=== PATIENT | female | born 1985 | race African-American/Black ===

== ENCOUNTER 2016-03-14 16:54 | Inpatient (IN) | payer OTHER ==
[2016-03-14 17:15] VITALS: BMI 30.7
--- NOTE | 2016-03-14 19:04 | PDOC ---
History of Present Illness - General Chief Complaint: Pain, Acute Stated Complaint: LOWER ABD PAIN Time Seen by Provider: 03/14/16 18:45 History Source: Patient Exam Limitations: No Limitations - History of Present Illness Travel History: No Timing/Duration: reports: intermittent Quality: reports: moderate Abdominal Pain Onset Location: reports: RLQ Pain Radiation: reports: no radiation Past History - Travel Traveled outside of the country in the last 30 days: No Close contact w/someone who was outside of country & ill: No - Past Medical History Allergies/Adverse Reactions: Allergies Allergy/AdvReac Type Severity Reaction Status Date / Time No Known Allergies Allergy Verified 10/15/13 20:23 Home Medications: Ambulatory Orders NK [No Known Home Medication] 03/14/16 Anemia: Yes Other medical history: ovarian cyst, enlarged left ovary, endometriosis - Surgical History Comments:: 03/14/16 20:51 Patient has 1 kidney:Right Patient donator her left kidney to her father 5 years ago. - Reproductive History Is Patient Now?: No - Immunization History Immunization Up to Date: Yes - Psycho/Social/Smoking Cessation Hx Anxiety: No Suicidal Ideation: No Smoking History: Never smoked Have you smoked in the past 12 months: No Information on smoking cessation initiated: No Hx Alcohol Use: No Drug/Substance Use Hx: No Substance Use Type: None Review of Systems - Review of Systems Able to Perform ROS?: Yes Comments:: 03/14/16 20:51 CONSTITUTIONAL: Absent: fever, chills, diaphoresis, generalized weakness, malaise, loss of appetite HEENT: Absent: rhinorrhea, nasal congestion, throat pain, throat swelling, difficulty swallowing, mouth swelling, ear pain, eye pain, visual Changes CARDIOVASCULAR: Absent: chest pain, loss of consciousness, palpitations, irregular heart rate, peripheral edema RESPIRATORY: Absent: cough, shortness of breath, dyspnea with exertion, orthopnea, wheezing, stridor, hemoptysis GASTROINTESTINAL: +RLQ pain Absent: abdominal distension, nausea, vomiting, diarrhea, constipation, melena , hematochezia GENITOURINARY: Absent: dysuria, frequency, urgency, hesitancy, hematuria, flank pain, genital pain MUSCULOSKELETAL: Absent: myalgia, arthralgia, joint swelling SKIN: Absent: rash, itching, pallor HEMATOLOGIC/IMMUNOLOGIC: Absent: easy bleeding, easy bruising, lymphadenopathy, frequent infections ENDOCRINE: Absent: unexplained weight gain, unexplained weight loss, heat intolerance, cold intolerance NEUROLOGIC: Absent: headache, focal weakness or paresthesias, dizziness, unsteady gait, seizure, mental status changes, bladder or bowel incontinence PSYCHIATRIC: Absent: anxiety, depression, suicidal or homicidal ideation, hallucinations. Is the patient limited Portuguese proficient: No *Physical Exam - Vital Signs Last Vital Signs Temp Pulse Resp BP Pulse Ox 98.3 F 60 18 131/75 100 03/14/16 17:11 03/14/16 17:11 03/14/16 17:11 03/14/16 17:11 03/14/16 17:11 - Physical Exam Comments: 03/14/16 20:52 31-year-old female presents to the emergency department complaining of right lower quadrant abdominal pain 2 days. Pain is described as 5/10 dull nonradiating intermittent discomfort. There are no alleviating or exacerbating factors. Patient denies any nausea/vomiting, fever/chills, chest pain, shortness of breath, flank pains, urinary symptoms: Frequency/urgency/hesitancy , hematuria. LMP: Approximately 2 weeks ago. Patient only has one kidney/right Patient donator her left kidney to her father 5 years ago. GENERAL: Well developed, well nourished. Awake and alert. No acute distress. HEENT: Normocephalic, atraumatic. PERRLA, EOMI. No conjunctival pallor. Sclera are non- icteric. Moist mucous membranes. Oropharynx is clear. NECK: Supple. Full ROM. No JVD. Carotid pulses 2+ and symmetric, without bruits. No thyromegaly. No lymphadenopathy. CARDIOVASCULAR: Regular rate and rhythm. No murmurs, rubs, or gallops. Distal pulses are 2+ and symmetric. PULMONARY: No evidence of respiratory distress. Lungs clear to auscultation bilaterally. No wheezing, rales or rhonchi. ABDOMINAL: RLQ pain on palp; +Rovsings +mcBurney's Soft. Non-distended. No rebound or guarding. No organomegaly. Normoactive bowel sounds. MUSCULOSKELETAL Normal range of motion at all joints. No bony deformities or tenderness. No CVA tenderness. EXTREMITIES: No cyanosis. No clubbing. No edema. No calf tenderness. SKIN: Warm and dry. Normal capillary refill. No rashes. No jaundice. NEUROLOGICAL: Alert, awake, appropriate. Cranial nerves 2-12 intact. No deficits to light touch and temperature in face, upper extremities and lower extremities. No motor deficits in the in face, upper extremities and lower extremities. Normoreflexic in the upper and lower extremities. Normal speech. Toes are down- going bilaterally. Gait is normal without ataxia. PSYCHIATRIC: Cooperative. Good eye contact. Appropriate mood and affect. ED Treatment Course - LABORATORY CBC & Chemistry Diagram: 03/14/16 18:50 03/14/16 18:50 - RADIOLOGY Radiograph Interpretation: 03/15/16 02:38 Web Services Developer: ([email or web address]) Begin of Report Content Referring Physician: Isaura Minor Patient Name: Zamzam Araujo This is a preliminary report by imaging production zone leader Exam: Noncontrast CT pelvis Images: [id number] Clinical indication: Right lower quadrant pain. A prior examination performed earlier on the same evening was reviewed. Findings: The appendix was seen to better advantage on the initial examination and is now obscured by inseparable isoattenuating small bowel loops. A fecalith is noted in the distal tip of the appendix. No periappendiceal inflammatory changes are identified on either examination. No cecal thickening or pericecal inflammatory changes are seen. The uterus is anteverted. Uterine fibroids are noted. No adnexal masses are seen. The urinary bladder is unremarkable. No pelvic adenopathy is seen. Impression: The appendix is poorly visualized due to the presence of inseparable isoattenuating unopacified small bowel loops. An appendicolith is noted in the distal appendix. No surrounding inflammatory changes are seen. On the initial examination a short segment of the appendix is noted to abut the right psoas muscle. Correlate for psoas sign. THIS DOCUMENT HAS BEEN ELECTRONICALLY SIGNED Kapil Hammer M.D. 03/15/16 03:38 Progress Note - Progress Note Progress Note: 0235hrs: Called Dr. Braxton/surgery production zone leader 0305hrs: Called Dr. Braxton/surgery production zone leader 0328hrs: Microblogged hospitalist 0612hrs: Numerous calls were made to Dr. Braxton/ no response 0727hrs: Spoke to Dr. Braxton/ will take pt for lap appy today *DC/Admit/Observation/Transfer Diagnosis at time of Disposition: Acute appendicitis Qualifiers: Acute appendicitis type: unspecified acute appendicitis type Qualified Code(s) : K35.80 - Unspecified acute appendicitis - Discharge Dispostion Condition at time of disposition: Guarded Admit: Yes - Referrals
[2016-03-14 19:13] LABS: BASOPHIL 2.3 % (0-2.0); EOSINOPHIL 2.6 % (0-4.5); MCH 22.2 pg (25.7-33.7); MCHC 31.3 g/dl (32.0-36.0); MEAN CELL VOLUME 70.8 fl (80-96); MEAN PLT VOLUME 8.9 fl (7.5-11.1); NEUTROPHILS 70.6 % (42.8-82.8); PLATELET COUNT 247 K/MM3 (134-434); RDW 16.7 % (11.6-15.6)
[2016-03-14 19:15] LABS: URINE APPEARANCE CLEAR; URINE BILIRUBIN NEGATIVE (NEGATIVE); URINE BLOOD NEGATIVE (NEGATIVE); URINE COLOR COLORLESS; URINE GLUCOSE (UA) NEGATIVE (NEGATIVE); URINE KETONE NEGATIVE (NEGATIVE); URINE LEUK ESTERASE NEGATIVE (NEGATIVE); URINE NITRITE NEGATIVE (NEGATIVE); URINE PROTEIN NEGATIVE (NEGATIVE); URINE UROBILINOGEN NEGATIVE E.U./dl (0.2-1.0)
[2016-03-14 19:54] LABS: BILIRUBIN,TOTAL 0.3 mg/dL (0.2-1.0); CALCIUM 8.9 mg/dL (8.5-10.1); CREATININE 1.2 mg/dL (0.55-1.02); TOT PROT 7.7 g/dl (6.4-8.2)
--- NOTE | 2016-03-14 19:57 | PDOC ---
*Physical Exam - Vital Signs Last Vital Signs Temp Pulse Resp BP Pulse Ox 98.3 F 60 18 131/75 100 03/14/16 17:11 03/14/16 17:11 03/14/16 17:11 03/14/16 17:11 03/14/16 17:11 ED Treatment Course - LABORATORY CBC & Chemistry Diagram: 03/16/16 06:45 03/16/16 06:45 - ADDITIONAL ORDERS Additional order review: Laboratory Results 03/14/16 18:50 Urine Color Colorless Urine Appearance Clear Urine pH 6.0 Ur Specific [place] 1.002 Urine Protein Negative Urine Glucose (UA) Negative Urine Ketones Negative Urine Blood Negative Urine Nitrite Negative Urine Bilirubin Negative Urine Urobilinogen Negative Ur Leukocyte Esterase Negative Urine HCG, Qual Negative 03/14/16 18:50 RBC 5.18 MCV 70.8 L MCHC 31.3 L RDW 16.7 H D MPV 8.9 Neutrophils % 70.6 Lymphocytes % 18.3 Monocytes % 6.2 Eosinophils % 2.6 Basophils % 2.3 H Medical Decision Making - Medical Decision Making 03/14/16 19:57 Pt seen by the Advanced Practice Provider under my direct supervision Ancillary studies reviewed I agree with plan as outlined by the Advanced Practice Provider LELO Minor *DC/Admit/Observation/Transfer Diagnosis at time of Disposition: Acute appendicitis - Discharge Dispostion Disposition: HOME Condition at time of disposition: Guarded - Prescriptions
[2016-03-15] MEDS ORDERED: CEFTRIAXONE 1 GM in DEXTROSE 5%-WATER - 100 ML IVPB ONE (02:25)
[2016-03-15] MEDS ORDERED: CEFTRIAXONE 50 ML ONE (02:38)
[2016-03-15] MEDS ORDERED: ONDANSETRON 4 MG/2 ML VIAL IVPB PRN (06:10)
[2016-03-15] MEDS ORDERED: DOCUSATE SODIUM 100 MG CAPSULE (FP) PO PRN (06:10)
[2016-03-15] MEDS ORDERED: morphine CARPU-JECT 2 MG/1 ML DISP.SYRIN IVPUSH PRN (06:10)
[2016-03-15] MEDS ORDERED: DEXTROSE 5%-NORMAL SALINE 1,000 ML IV SCH (06:15)
--- NOTE | 2016-03-15 09:07 | CONSULT ---
Consult Consult Specialty:: Surgery Reason for Consultation:: Acute appendicitis - History of Present Illness History of Present Illness: 31 female presents to ER for RLQ pain x 2 days No prior episodes No fevers/chills No nausea/vomiting No diarrhea - History Source History Provided By: Patient, Medical Record Limitations to Obtaining History: No Limitations - Past Medical History ...: No - Past Surgical History Additional Surgical History: Left kidney donor transplant - Alcohol/Substance Use Hx Alcohol Use: No - Smoking History Smoking history: Never smoked Have you smoked in the past 12 months: No Home Medications - Allergies Allergies/Adverse Reactions: Allergies Allergy/AdvReac Type Severity Reaction Status Date / Time No Known Allergies Allergy Verified 10/15/13 20:23 - Home Medications Home Medications: Ambulatory Orders Oxycodone HCl/Acetaminophen [Percocet 5-325 mg Tablet] 1 - 2 tab PO Q6H #28 tab MDD 4 03/15/16 Family Disease History - Family Disease History Family History: Unremarkable Review of Systems - Review of Systems Constitutional: denies: Chills, Fever HENT: reports: No Symptoms Cardiovascular: denies: Chest Pain Respiratory: denies: Cough Gastrointestinal: reports: Abdominal Pain. denies: Diarrhea, Vomiting Neurological: denies: Change in LOC Pain Intensity: 4 Physical Exam Vital Signs: Vital Signs Temperature 98.5 F 03/15/16 06:30 Pulse Rate 64 03/15/16 06:30 Respiratory Rate 19 03/15/16 06:30 Blood Pressure 115/75 03/15/16 06:30 O2 Sat by Pulse Oximetry (%) 100 03/15/16 06:30 Constitutional: Yes: Calm Neck: Yes: Supple Cardiovascular: Yes: Regular Rate and Rhythm Respiratory: Yes: CTA Bilaterally Gastrointestinal: Yes: Soft, Tenderness (RLQ). No: Distention, Tenderness, Rebound Neurological: Yes: Alert, Oriented Labs: CBC,CMP WBC 10.0 K/mm3 (4.0-10.0) 03/14/16 18:50 RBC 5.18 M/mm3 (3.60-5.2) 03/14/16 18:50 Hgb 11.5 GM/dL (10.7-15.3) 03/14/16 18:50 Hct 36.7 % (32.4-45.2) 03/14/16 18:50 MCV 70.8 fl (80-96) L 03/14/16 18:50 MCHC 31.3 g/dl (32.0-36.0) L 03/14/16 18:50 RDW 16.7 % (11.6-15.6) H D 03/14/16 18:50 Plt Count 247 K/MM3 (134-434) D 03/14/16 18:50 MPV 8.9 fl (7.5-11.1) 03/14/16 18:50 Neutrophils % 70.6 % (42.8-82.8) 03/14/16 18:50 Lymphocytes % 18.3 % (8-40) 03/14/16 18:50 Monocytes % 6.2 % (3.8-10.2) 03/14/16 18:50 Eosinophils % 2.6 % (0-4.5) 03/14/16 18:50 Basophils % 2.3 % (0-2.0) H 03/14/16 18:50 Sodium 140 mmol/L (136-145) 03/14/16 18:50 Potassium 4.1 mmol/L (3.5-5.1) 03/14/16 18:50 Chloride 104 mmol/L (98-107) 03/14/16 18:50 Carbon Dioxide 28 mmol/L (21-32) 03/14/16 18:50 Anion Gap 8 (8-16) 03/14/16 18:50 BUN 12 mg/dL (7-18) D 03/14/16 18:50 Creatinine 1.2 mg/dL (0.55-1.02) H 03/14/16 18:50 Creat Clearance w eGFR 52.75 (>60) 03/14/16 18:50 Random Glucose 79 mg/dL (74-106) 03/14/16 18:50 Calcium 8.9 mg/dL (8.5-10.1) 03/14/16 18:50 Total Bilirubin 0.3 mg/dL (0.2-1.0) 03/14/16 18:50 AST 17 U/L (15-37) 03/14/16 18:50 ALT 29 U/L (12-78) 03/14/16 18:50 Alkaline Phosphatase 69 U/L (45-117) 03/14/16 18:50 Total Protein 7.7 g/dl (6.4-8.2) 03/14/16 18:50 Albumin 4.0 g/dl (3.4-5.0) D 03/14/16 18:50 Imaging - Results Cat Scan: Report Reviewed, Image Reviewed Problem List - Problems (1) Acute appendicitis Code(s): K35.80 - UNSPECIFIED ACUTE APPENDICITIS Qualifiers: Acute appendicitis type: unspecified acute appendicitis type Qualified Code(s): K35.80 - Unspecified acute appendicitis Assessment/Plan 31 female with acute appendicitis and appendicolith NPO For laparoscopic possible open appendectomy Risks and benefits explained Understands and agrees
--- NOTE | 2016-03-15 10:06 | HP ---
CHIEF COMPLAINT: "my stomach hurts" PCP: Dr Keron Coppola HISTORY OF PRESENT ILLNESS: This is a 31 yo F with no PMH, who presents due to right lower quadrant abdominal pain 2 days. It started out as diffuse pelvic pain and eventually localized to RLQ. she shates it has been cramping/dull, intermittant, nonradiating and 8/10 at its worst. It was not alleviated by Tylenol. There are no alleviating or exacerbating factors. She denies ever having similar pain before. She denies eating new foods or sick contacts. She denies nausea/vomiting , diarrhea/melena/hematochezia, fever/chills, chest pain, shortness of breath, flank pain or dysuria. 5 years ago she donated her L kidney to her father who was in hypertensive renal failure. she is currently asymptomatic unless her abdomen is pressed on. ER course was notable for: (1)labs (2)abdominal/pelvic CT (3)rocephin, IVF, zofran, colace. Recent Travel: denies PAST MEDICAL HISTORY: as above PAST SURGICAL HISTORY: as above and 3 c sections Social History: lives at home with , student Smoking: denies Alcohol: denies Drugs: denies Family History: HTN, DM Allergies No Known Allergies Allergy (Verified 10/15/13 20:23) HOME MEDICATIONS: Medication Instructions Recorded Oxycodone HCl/Acetaminophen 1 - 2 tab PO Q6H #28 tab MDD 4 03/15/16 [Percocet 5-325 mg Tablet] REVIEW OF SYSTEMS CONSTITUTIONAL: Absent: fever, chills, diaphoresis, generalized weakness, loss of appetite HEENT: Absent: rhinorrhea, nasal congestion, throat pain CARDIOVASCULAR: Absent: chest pain, syncope, palpitations RESPIRATORY: Absent: cough, shortness of breath, dyspnea with exertion GASTROINTESTINAL: Absent: nausea, vomiting, diarrhea, constipation, melena, hematochezia GENITOURINARY: Absent: dysuria, frequency, urgency MUSCULOSKELETAL: Absent: myalgia, arthralgia SKIN: Absent: rash, itching, pallor HEMATOLOGIC/IMMUNOLOGIC: Absent: easy bleeding, easy bruising ENDOCRINE: Absent: unexplained weight gain, unexplained weight loss NEUROLOGIC: Absent: headache, focal weakness or paresthesias, dizziness PSYCHIATRIC: Absent: anxiety, depression Laboratory Tests 03/14/16 03/14/16 03/14/16 18:50 18:50 18:50 WBC 10.0 Hgb 11.5 Hct 36.7 Plt Count 247 D Neutrophils % 70.6 Lymphocytes % 18.3 Sodium 140 Potassium 4.1 Chloride 104 Carbon Dioxide 28 Anion Gap 8 BUN 12 D Creatinine 1.2 H Creat Clearance w eGFR 52.75 Random Glucose 79 Calcium 8.9 Total Bilirubin 0.3 AST 17 ALT 29 Alkaline Phosphatase 69 Total Protein 7.7 Albumin 4.0 D Urine Color Colorless Urine Appearance Clear Urine pH 6.0 Ur Specific [place] 1.002 Urine Protein Negative Urine Glucose (UA) Negative Urine Ketones Negative Urine Blood Negative Urine Nitrite Negative Urine Bilirubin Negative Urine Urobilinogen Negative Ur Leukocyte Esterase Negative Urine HCG, Qual Negative PHYSICAL EXAMINATION GENERAL: Awake, alert, and fully oriented, in no acute distress. HEAD: Normal with no signs of trauma. EYES: Pupils equal, round and reactive to light, extraocular movements intact, sclera anicteric, conjunctiva clear. EARS, NOSE, THROAT: Moist mucous membranes. NECK: supple without lymphadenopathy, JVD, or masses. LUNGS: Breath sounds equal, clear to auscultation bilaterally. HEART: Regular rate and rhythm, normal S1 and S2 ABDOMEN: Soft, not distended, globally reduced bowel sounds +rovsing +mcburney MUSCULOSKELETAL: No CVA tenderness. UPPER EXTREMITIES: 2+ pulses, warm, well-perfused. No cyanosis. No peripheral edema. LOWER EXTREMITIES: 2+ pulses, warm, well-perfused. No calf tenderness. No peripheral edema. NEUROLOGICAL: Cranial nerves II-XII grossly intact. Normal speech. PSYCHIATRIC: Cooperative. Good eye contact. Appropriate mood and affect. SKIN: Warm, dry ASSESSMENT/PLAN: This is a 31 yo F with no PMH, who presents due to right lower quadrant abdominal pain 2 days. Acute appendecitis -CT abdomen/pelvis: consistent with possible acute appendicitis, no abscess or rupture -afebrile, hemodynamically stable, no leukocytosis -s/p rocephin in ED -IVF D5W -zofran PRN -Reviewed by Surgery-OR recommended -Lap appe this morning -post op recommendatins per surgery -NPO; regular diet post op -dilaudid 1 mg q4h prn -oxycodone 10 mg q4h -NS@75 -tylenon prn S/p nephrectomy -donor -mildly elevated creat 1.2 wnl in setting of one kidney FEN NS@75 lytes stable DVt GI PPX: early ambulation, SCD, diet NPO; then regular diet post op Dispo: admit to med surge, possible d/c tomorrow AM. Problem List - Problem (1) Acute appendicitis Code(s): K35.80 - UNSPECIFIED ACUTE APPENDICITIS Qualifiers: Acute appendicitis type: unspecified acute appendicitis type Qualified Code(s): K35.80 - Unspecified acute appendicitis (2) Abdominal pain Code(s): R10.9 - UNSPECIFIED ABDOMINAL PAIN (3) History of nephrectomy, unilateral Code(s): Z90.5 - ACQUIRED ABSENCE OF KIDNEY Visit type - Emergency Visit Emergency Visit: Yes ED Registration Date: 03/15/16 Care time: The patient presented to the Emergency Department on the above date and was hospitalized for further evaluation of their emergent condition. - New Patient This patient is new to me today: Yes Date on this admission: 03/15/16 - Critical Care Critical Care patient: No
[2016-03-15] MEDS ORDERED: PROPOFOL 20 ML ONE (11:15)
[2016-03-15] MEDS ORDERED: ceFAZolin SODIUM 1 GM VIAL IVPB ONE (11:30)
[2016-03-15] MEDS ORDERED: BUPIVACAINE HCL/PF 0.5% (5MG/ML) 10 ML VIAL IJ ONE (11:42)
[2016-03-15] MEDS ORDERED: DEXAMETHASONE SOD PHOSPHATE 4 MG/1 ML VIAL ONE (11:43)
[2016-03-15] MEDS ORDERED: KETOROLAC TROMETHAMINE 30 MG/1 ML VIAL ONE (11:43)
[2016-03-15] MEDS ORDERED: ceFAZolin SODIUM 1 GM VIAL ONE (11:43)
[2016-03-15] MEDS ORDERED: GLYCOPYRROLATE 0.2 MG/1 ML VIAL ONE ×2 (11:44)
[2016-03-15] MEDS ORDERED: SUCCINYLCHOLINE CHLORIDE 200 MG/10 ML VIAL ONE (11:44)
[2016-03-15] MEDS ORDERED: NEOSTIGMINE METHYLSULFATE 0.5 MG/ML - 10 ML MDV ONE (11:58)
[2016-03-15] MEDS ORDERED: ONDANSETRON 4 MG/2 ML VIAL IVPUSH PRN (12:10)
[2016-03-15] MEDS ORDERED: oxyCODONE HCL 5 MG TABLET PO PRN ×2 (12:10→12:58)
[2016-03-15] MEDS ORDERED: ACETAMINOPHEN 325 MG TABLET (FP) PO PRN (12:26)
--- NOTE | 2016-03-15 12:28 | OP ---
Operative Note - Note: Operative Date: 03/15/16 Pre-Operative Diagnosis: Acute appendicitis Operation: Laparoscopic appendectomy Post-Operative Diagnosis: Same as Pre-op Surgeon: Jhonatan Braxton Hand Candy Cutter: Salma Holden Anesthesia: General Specimens Removed: Appendix Estimated Blood Loss (mls): 5 Operative Report Dictated: Yes
--- NOTE | 2016-03-15 13:11 | SPEC ---
DATE OF OPERATION: 03/15/2016 SURGEON: Lexx Braxton MD VEHICLE CHECK IN CLERK: Sue Holden PREOPERATIVE DIAGNOSIS: Acute appendicitis. POSTOPERATIVE DIAGNOSIS: Acute appendicitis. PROCEDURE: Laparoscopic appendectomy. SPECIMEN: Appendix. ESTIMATED BLOOD LOSS: 5 mL. DRAINS: None. ANESTHESIA: GET. REASON FOR PROCEDURE: This is a 31-year-old female who presented to the hospital with right lower quadrant pain. On CT of the abdomen and pelvis, she was found to have evidence of appendicitis with partial visualization of the appendix but with an appendicolith. Because of this, she was consented for a laparoscopic, possible open appendectomy. RISKS AND BENEFITS: The risks and benefits were explained for a laparoscopic, possible open appendectomy. These included bleeding, infection, hernia, PA, DVT, PE, injury to surrounding structures including the liver, colon, bowel, bladder, ureter, vessel injury, nerve injury, abscess formation, staple line leak, staple line dehiscence as some of the possible complications. The patient understood and signed informed consent. DESCRIPTION OF PROCEDURE: The patient was placed supine on the operating room table. The patient underwent general endotracheal intubation. A Rodriguez catheter was inserted by the nursing staff. The abdomen was prepped and draped in the usual sterile fashion. A timeout was performed. A periumbilical incision was made, and a 5-mm optical trocar was inserted under direct visualization with the laparoscope. Pneumoperitoneum was then established. Subsequently, a 5-mm trocar was placed in the suprapubic area and a 12-mm trocar placed in the left lower quadrant. The patient was placed in Trendelenburg right side up position. After meticulous dissection, the appendix was identified. The appendix was freed from its surrounding structures, and the appendix was retracted to the anterior abdominal wall. The base of the appendix was identified. A window was created within the mesentery near the base of the appendix. The appendix at its base was stapled using a laparoscopic Endo-JUSTIN stapler with a white load. The mesoappendix was then transected using a laparoscopic Endo-JUSTIN stapler with a white load. The appendix was placed in an EndoCatch bag. Inspection of both staple lines was identified. The staple line at the base of the appendix was noted to be fully intact. Hemostasis was noted at the staple line of the mesoappendix. Copious irrigation and suction was performed. The appendix was removed from the abdominal cavity and sent off the operative field as specimen. The patient was then placed in left side up position. The 12-mm trocar was removed. The fascia at this site was closed using a 0 Vicryl suture with a Jonathan-Bj device. The patient was then placed supine. Pneumoperitoneum was desufflated, and all further trocars were removed. All incision sites were irrigated, and Marcaine was injected at all incision sites. The fascial suture was secured. All incision sites were closed using 4-0 Biosyn. Sterile dressings were applied. The patient tolerated the procedure well. The Rodriguez catheter was removed, and the patient was transferred to the recovery room in stable condition. LEXX BRAXTON M.D. JER/[id number]
--- NOTE | 2016-03-15 14:57 | SURG ---
Surgery Compliance Engineer Note Compliance Engineer: Salma Holden PA-C Date of Service: 03/15/16 Diagnosis: Acute appendicitisy Procedure: Laparoscopic appendectomy I was present for the operative procedure. For further detail, please refer to operative report. Visit type - Case Type Case Type: ED Admission - New patient This patient is new to me today: Yes Date on this admission: 03/15/16
[2016-03-15] MEDS: SODIUM CHLORIDE 1,000 ML IV SCH (15:01)
[2016-03-15] MEDS: HYDROmorphone HCL CARPU-JECT 1 MG/1 ML DISP.SYRIN IVPB PRN ×2 (15:30→19:48)
[2016-03-15] MEDS: ONDANSETRON 4 MG/2 ML VIAL IVPB PRN (16:16)
[2016-03-16] MEDS: HYDROmorphone HCL CARPU-JECT 1 MG/1 ML DISP.SYRIN IVPB PRN (00:51)
[2016-03-16] MEDS: ONDANSETRON 4 MG/2 ML VIAL IVPB PRN (03:07)
[2016-03-16] MEDS: SODIUM CHLORIDE 1,000 ML IV SCH ×2 (06:21→12:56)
--- NOTE | 2016-03-16 08:46 | PN ---
Progress Note (short form) - Note Progress Note: General Surgery- Dr. Braxtno Patient seen and examined this morning. Patient states she is feeling better than yesterday and her pain is controlled. She has 3 episodes of vomiting, last was at 6AM, but nausea is improving now. Patient states she had nothing to eat last night, she is about to eat eggs for breakfast. She has been urinating without issue and ambulating. She has no other complaints, denies F/ C. Last Vital Signs Temp Pulse Resp BP Pulse Ox 98.7 F 55 L 18 120/75 100 03/16/16 06:00 03/16/16 06:00 03/16/16 06:00 03/16/16 06:00 03/15/16 14:40 Exam: Gen:NAD, sitting at edge of bed with breakfast Abd: Soft, nondistended, tender to palp right side and around incisions, bandaids over port sites clean/dry/intact <Salma Holden - Last Filed: 03/16/16 08:46> - Note Progress Note: Agree POD 1 Laparoscopic appendectomy Pain controlled AVSS Abd soft H/H stable WBC 12 Doing well Discharge home Follow up in 1-2 weeks [phone] <Jhonatan Braxton - Last Filed: 03/16/16 14:36> Problem List - Problems (1) Acute appendicitis Assessment/Plan: POD#1 s/p laparoscopic appendectomy Monitor nausea and vomiting as patient eats regular diet Continue pain control with oral pain medication Ambulate DC home if tolerates diet and nausea controlled Code(s): K35.80 - UNSPECIFIED ACUTE APPENDICITIS Qualifiers: Acute appendicitis type: unspecified acute appendicitis type Qualified Code(s): K35.80 - Unspecified acute appendicitis <Salma Holden - Last Filed: 03/16/16 08:46> - Problems (1) Acute appendicitis Code(s): K35.80 - UNSPECIFIED ACUTE APPENDICITIS Qualifiers: Acute appendicitis type: unspecified acute appendicitis type Qualified Code(s): K35.80 - Unspecified acute appendicitis <Jhonatan Braxton - Last Filed: 03/16/16 14:36>
[2016-03-16 09:00] LABS: BASOPHIL 0.2 % (0-2.0); EOSINOPHIL 0.1 % (0-4.5); MCH 22.4 pg (25.7-33.7); MCHC 31.5 g/dl (32.0-36.0); MEAN CELL VOLUME 71.2 fl (80-96); MEAN PLT VOLUME 9.5 fl (7.5-11.1); NEUTROPHILS 85.5 % (42.8-82.8); PLATELET COUNT 177 K/MM3 (134-434); RDW 16.5 % (11.6-15.6)
[2016-03-16 09:45] VITALS: BP 129/71; PULSE 61; TEMP 99.2
[2016-03-16 09:57] LABS: ALBUMIN 3.5 g/dl (3.4-5.0); BILIRUBIN,TOTAL 0.5 mg/dL (0.2-1.0); CALCIUM 8.2 mg/dL (8.5-10.1); CREATININE 1.2 mg/dL (0.55-1.02); MAGNESIUM 1.8 mg/dL (1.8-2.4); PHOSPHOROUS 2.9 mg/dL (2.5-4.9); TOT PROT 6.8 g/dl (6.4-8.2)
--- NOTE | 2016-03-16 12:27 | PN ---
Progress Note (short form) - Note Progress Note: ANESTHESIA POST-OP CHECK 31F S/P laparoscopic appendectomy under general anesthesia POD #1. No acute complaints, had some nausea, now resolved. Pain 2/10, ambulating, tolerating PO. Vital Signs Temperature 99.2 F 03/16/16 09:44 Pulse Rate 61 03/16/16 09:44 Respiratory Rate 20 03/16/16 09:44 Blood Pressure 129/71 03/16/16 09:44 O2 Sat by Pulse Oximetry (%) 100 03/16/16 09:00 Active Medications Acetaminophen (Tylenol -) 650 mg PO Q4H PRN PRN Reason: FEVER OR PAIN Hydromorphone HCl (Dilaudid Injection -) 1 mg IVPB Q4H PRN PRN Reason: PAIN Last Admin: 03/16/16 00:51 Dose: 1 mg Sodium Chloride (Normal Saline -) 1,000 mls @ 75 mls/hr IV ASDIR ESMER Last Admin: 03/16/16 06:21 Dose: 75 mls/hr Ondansetron HCl (Zofran Injection) 4 mg IVPB Q6H PRN PRN Reason: NAUSEA Last Admin: 03/16/16 03:07 Dose: 4 mg Gen: Awake, alert No apparent anesthesia complications. Pain well controlled. Requests prescription for anti-emetic on discharge (apprehension about becoming nauseous ) - communicated request to nurse. Continue management as per primary team.
--- NOTE | 2016-03-16 12:46 | DS ---
Physical Examination Vital Signs: Vital Signs Temperature 99.2 F 03/16/16 09:44 Pulse Rate 61 03/16/16 09:44 Respiratory Rate 20 03/16/16 09:44 Blood Pressure 129/71 03/16/16 09:44 O2 Sat by Pulse Oximetry (%) 100 03/16/16 09:00 Labs: CBC, BMP 03/16/16 06:45 03/16/16 06:45 Discharge Summary Reason For Visit: ACUTE APPENDICITIS Current Active Problems Acute appendicitis (Acute) History of nephrectomy, unilateral (Acute) Hospital Course: 31 yo F with no PMH, who presents due to right lower quadrant abdominal pain 2 days. It started out as diffuse pelvic pain and eventually localized to RLQ. she shates it has been cramping/dull, intermittant, nonradiating and 8/10 at its worst. It was not alleviated by Tylenol. There are no alleviating or exacerbating factors. She denies ever having similar pain before. She denies eating new foods or sick contacts. She denies nausea/vomiting, diarrhea/melena/ hematochezia, fever/chills, chest pain, shortness of breath, flank pain or dysuria. 5 years ago she donated her L kidney to her father who was in hypertensive renal failure. she is currently asymptomatic unless her abdomen is pressed on. Pt was found to have possible appendicitis on CT scan and was admitted to medicine service. Pt was seen and taken to O.R. by general surgery attending and had lap appendectomy which she tolerated well. Pt will be discharged with surgery follow up as an outpatient I spent greater than 50 minutes preparing this discharge Condition: Guarded - Instructions Diet, Activity, Other Instructions: no heavy lifting for the next 4 weeks make an appointment with your enterprise application developer as a slightly enlarged ovary was seen during surgery Referrals: Jhonatan Braxton MD [Staff Physician] - 2 Weeks STAFF,NOT ON [Primary Care Provider] - - Home Medications Comprehensive Discharge Medication List: Ambulatory Orders NK [No Known Home Medication] 03/15/16 This patient is new to me today: Yes Date on this admission: 03/16/16 Emergency Visit: Yes ED Registration Date: 03/15/16 Care time: The patient presented to the Emergency Department on the above date and was hospitalized for further evaluation of their emergent condition. Critical Care patient: No - Discharge Referral Referred to [facility] No
--- NOTE | 2016-03-18 12:15 | PATH ---
Surgical Pathology Report Patient Name: PATRICK VIVEROS [facility]. Rec. #: [id number] /Age/Gender: 1985 (Age: 31) / F Account: [id number] Location: [facility] MED/SURG Taken: 03/15/2016 Received: 03/17/2016 Reported: 03/18/2016 Physicians: Jhonatan Braxton M.D. Specimen(s) Received APPENDIX Clinical History Acute appendicitis Final Diagnosis APPENDIX, APPENDECTOMY: ACUTE APPENDICITIS. Electronically Signed Morgan Cabrera M.D. Gross Description Received in formalin, labeled "appendix," is a 6 cm. in length vermiform appendix with a stapled margin of resection and moderate attached fat. The serosa is weber and smooth. Sectioning reveals an unremarkable lumen. The wall of the appendix averages 0.1 cm. in thickness. Mobile Engineer sections are submitted in one cassette. /03/17/2016 saudi03/17/2016
== END 2016-03-16 13:05 | disposition home or self-care (01) | DRG 167 ==
LOC: JER 16:54 → JERBED 03-15 06:37 → J8W 03-15 14:11
PROVIDERS: ADMIT Internal Medicine; ATTEND Internal Medicine
PROC: 0DTJ4ZZ Resection of Appendix, Percutaneous Endoscopic Approach (ICD-10-PCS; principal; 2016-03-15 11:00)
DX: K35.80 Unspecified acute appendicitis (principal); Z90.5 Acquired absence of kidney; Q50.39 Other congenital malformation of ovary
CPT/HCPCS: 36415; 72192-TC; 74176-TC; 80048; 80053; 81003; 83735; 84100; 84703; 85025; 88304-TC; 94760; 99283-25

== ENCOUNTER 2016-03-20 19:30 | Emergency (ER) | payer OTHER ==
[2016-03-20 20:14] VITALS: BP 127/76; PULSE 60; TEMP 98.2; BMI 30.7
[2016-03-20] MEDS ORDERED: SODIUM CHLORIDE 500 ML IV STA (20:41)
[2016-03-20] MEDS ORDERED: morphine CARPU-JECT 4 MG/1 ML DISP.SYRIN IVPUSH ONE (20:42)
[2016-03-20] MEDS ORDERED: morphine CARPU-JECT 4 MG/1 ML DISP.SYRIN ONE (20:50)
[2016-03-20 21:08] LABS: BASOPHIL 0.5 % (0-2.0); MCH 22.1 pg (25.7-33.7); MCHC 31.3 g/dl (32.0-36.0); MEAN CELL VOLUME 70.8 fl (80-96); MEAN PLT VOLUME 9.1 fl (7.5-11.1); NEUTROPHILS 84.3 % (42.8-82.8); PLATELET COUNT 242 K/MM3 (134-434); RDW 16.9 % (11.6-15.6); WHITE BLOOD COUNT 11.8 K/mm3 (4.0-10.0)
[2016-03-20 21:21] LABS: INR 1.2 (0.82-1.09); PROTHROMBIN TIME (PATIENT) 13.3 SEC (9.98-11.88)
[2016-03-20 21:28] LABS: ALBUMIN 4.2 g/dl (3.4-5.0); BILIRUBIN,TOTAL 0.3 mg/dL (0.2-1.0); CREATININE 1.4 mg/dL (0.55-1.02); TOT PROT 7.9 g/dl (6.4-8.2)
[2016-03-20] MEDS ORDERED: FAMOTIDINE 20 MG/50 ML IVPB 50 ML IVPB ONE ×2 (21:34→21:45)
[2016-03-20 22:15] LABS: URINE APPEARANCE CLEAR; URINE BILIRUBIN NEGATIVE (NEGATIVE); URINE BLOOD NEGATIVE (NEGATIVE); URINE COLOR LTYELLOW; URINE GLUCOSE (UA) NEGATIVE (NEGATIVE); URINE KETONE NEGATIVE (NEGATIVE); URINE NITRITE NEGATIVE (NEGATIVE); URINE PROTEIN NEGATIVE (NEGATIVE); URINE UROBILINOGEN NEGATIVE E.U./dl (0.2-1.0)
[2016-03-20 22:18] LABS: URINE LEUK ESTERASE 3+ (NEGATIVE)
[2016-03-20 22:20] LABS: URINE BACTERIA RARE /hpf (NONE SEEN); URINE MUCUS RARE; URINE RBC 1 /hpf (0-3); URINE WBC 18 /hpf (3-5)
--- NOTE | 2016-03-21 01:19 | PDOC ---
History of Present Illness <Azael Jerry - Last Filed: 03/21/16 01:23> - General History Source: Patient, Old Records Exam Limitations: No Limitations - History of Present Illness Initial Comments: 03/21/16 01:28 The patient is a 31 year old female, with a significant past medical history of anemia, endometriosis, ovarian cyst, s/p complete nephrectomy (patient donated a kidney to her father 5 years ago), and who is s/p appendectomy (03/15/2016), who presents to the emergency department with intermittent epigastric pain for the past 4 hours. The patient rates her pain as a 20/10 in severity and reports that it radiates to the RLQ. The patient states that she has never felt pain like this before, not before or after her appendectomy. She states that her abdomen feels more distended than usual. The patient reports one episode of projectile vomiting this evening but denies ever feeling nauseous. She reports one bowel movement after the onset of her pain, which was normal. She reports that she has been able to pass gas since the onset of her pain. She reports taking one Oxycodone at 6:30PM this evening, without relief. The patient denies fever, chills, nausea, diarrhea, constipation. LMP: 2 weeks ago. Allergies: None reported. Past Surgical History: Nephrectomy, Appendectomy Social History: Non smoker. Denies alcohol or drug use. Surgeon: Dr. Braxton <Sona Blake - Last Filed: 03/21/16 01:31> - General Chief Complaint: Pain, Acute Stated Complaint: STOMACH PAIN Time Seen by Provider: 03/20/16 20:17 Past History - Past Medical History Anemia: Yes - Surgical History Appendectomy: Yes (03/11) - Immunization History Immunization Up to Date: Yes - Psycho/Social/Smoking Cessation Hx Anxiety: No Suicidal Ideation: No Smoking History: Never smoked Have you smoked in the past 12 months: No Hx Alcohol Use: No Drug/Substance Use Hx: No Substance Use Type: None Hx Substance Use Treatment: No <Azael Jerry - Last Filed: 03/21/16 01:23> <Sona Blake - Last Filed: 03/21/16 01:31> - Past Medical History Allergies/Adverse Reactions: Allergies Allergy/AdvReac Type Severity Reaction Status Date / Time No Known Allergies Allergy Verified 10/15/13 20:23 Home Medications: Ambulatory Orders Oxycodone HCl/Acetaminophen [Percocet 5-325 mg Tablet] 1 - 2 tab PO Q4H Review of Systems - Review of Systems Able to Perform ROS?: Yes Comments:: 03/21/16 01:28 CONSTITUTIONAL: No fever, no chills, no fatigue EYES: No visual changes ENT: No ear pain, no sore throat CARDIOVASCULAR: No chest pain, no palpitations RESPIRATORY: No cough, no SOB GI: +Vomiting, abdominal pain. No nausea, no constipation, no diarrhea GENITOURINARY: No dysuria, no frequency, no hematuria MUSKULOSKELETAL: No back pain, no joint pain, no myalgias SKIN: No rash NEURO: No headache <Sona Blake - Last Filed: 03/21/16 01:31> *Physical Exam - Vital Signs Last Vital Signs Temp Pulse Resp BP Pulse Ox 98.2 F 60 14 127/76 100 03/20/16 20:13 03/20/16 20:13 03/20/16 20:13 03/20/16 20:13 03/20/16 20:13 <Azael Jerry - Last Filed: 03/21/16 01:23> - Vital Signs Last Vital Signs Temp Pulse Resp BP Pulse Ox 98.2 F 60 14 127/76 100 03/20/16 20:13 03/20/16 20:13 03/20/16 20:13 03/20/16 20:13 03/20/16 20:13 - Physical Exam Comments: 03/21/16 01:28 CONSTITUTIONAL: Well-appearing; well-nourished; in no apparent distress. HEAD: Normocephalic; atraumatic. EYES: PERRL; EOM intact. ENMT: External appears normal; normal oropharynx. NECK: Supple; non-tender; no cervical lymphadenopathy. CARD: Normal S1, S2; no murmurs, rubs, or gallops. RESP: Normal chest excursion with respiration; breath sounds clear and equal bilaterally; no wheezes, rhonchi, or rales. ABD: Soft, distended; epigastric tenderness on palpation, bowel sounds present; no palpable organomegaly, no palpable hernias. EXT: Normal ROM in all four extremities; non-tender to palpation; distal pulses intact. SKIN: Warm, dry, no rash. NEURO: No focal neurological deficiencies. <Sona Blake - Last Filed: 03/21/16 01:31> ED Treatment Course - LABORATORY CBC & Chemistry Diagram: 03/20/16 20:40 03/20/16 20:40 - ADDITIONAL ORDERS Additional order review: Laboratory Results 03/20/16 03/20/16 03/20/16 21:06 20:40 20:40 INR Sodium 140 Potassium 4.1 Chloride 103 Carbon Dioxide 27 Anion Gap 10 BUN 14 D Creatinine 1.4 H Creat Clearance w eGFR 44.15 Random Glucose 96 D Calcium 9.0 Total Bilirubin 0.3 D AST 16 ALT 27 D Alkaline Phosphatase 66 Total Protein 7.9 Albumin 4.2 Lipase 96 Serum , Qual Negative Urine Color Ltyellow Urine Appearance Clear Urine pH 8.0 D Ur Specific [place] 1.013 Urine Protein Negative Urine Glucose (UA) Negative Urine Ketones Negative Urine Blood Negative Urine Nitrite Negative Urine Bilirubin Negative Urine Urobilinogen Negative Ur Leukocyte Esterase 3+ H Urine RBC 1 Urine WBC 18 Ur Epithelial Cells Few Urine Bacteria Rare Urine Mucus Rare Urine HCG, Qual Cancelled 03/20/16 20:40 INR 1.20 H Sodium Potassium Chloride Carbon Dioxide Anion Gap BUN Creatinine Creat Clearance w eGFR Random Glucose Calcium Total Bilirubin AST ALT Alkaline Phosphatase Total Protein Albumin Lipase Serum , Qual Urine Color Urine Appearance Urine pH Ur Specific [place] Urine Protein Urine Glucose (UA) Urine Ketones Urine Blood Urine Nitrite Urine Bilirubin Urine Urobilinogen Ur Leukocyte Esterase Urine RBC Urine WBC Ur Epithelial Cells Urine Bacteria Urine Mucus Urine HCG, Qual 03/20/16 20:40 RBC 5.40 H D MCV 70.8 L MCHC 31.3 L RDW 16.9 H MPV 9.1 Neutrophils % 84.3 H Lymphocytes % 8.5 Monocytes % 3.7 L Eosinophils % 3.0 D Basophils % 0.5 - RADIOLOGY Radiology Studies Ordered: Category Date Time Status ABDOMEN FLAT & UPRIGHT [RAD] Stat Radiology 03/20/16 20:39 Taken - Medications Given in the ED: ED Medications Discontinued Medications Generic Name Dose Route Start Last Admin Trade Name Freq PRN Reason Stop Dose Admin Sodium Chloride 500 mls @ 500 mls/hr 03/20/16 20:41 03/20/16 20:59 Normal Saline - IV 03/20/16 21:40 500 mls/hr ASDIR STA Administration Famotidine/Sodium Chloride 50 mls @ 100 mls/hr 03/20/16 21:34 03/20/16 21:56 Pepcid 20 Mg Premixed Ivpb - IVPB 03/20/16 22:03 100 mls/hr ONCE ONE Administration Morphine Sulfate 4 mg 03/20/16 20:42 03/20/16 20:59 Morphine Injection - IVPUSH 03/20/16 20:43 4 mg ONCE ONE Administration <Claritza,Boris - Last Filed: 03/21/16 01:23> - LABORATORY CBC & Chemistry Diagram: 03/20/16 20:40 03/20/16 20:40 - ADDITIONAL ORDERS Additional order review: Laboratory Results 03/20/16 03/20/16 03/20/16 21:06 20:40 20:40 INR Sodium 140 Potassium 4.1 Chloride 103 Carbon Dioxide 27 Anion Gap 10 BUN 14 D Creatinine 1.4 H Creat Clearance w eGFR 44.15 Random Glucose 96 D Calcium 9.0 Total Bilirubin 0.3 D AST 16 ALT 27 D Alkaline Phosphatase 66 Total Protein 7.9 Albumin 4.2 Lipase 96 Serum , Qual Negative Urine Color Ltyellow Urine Appearance Clear Urine pH 8.0 D Ur Specific [place] 1.013 Urine Protein Negative Urine Glucose (UA) Negative Urine Ketones Negative Urine Blood Negative Urine Nitrite Negative Urine Bilirubin Negative Urine Urobilinogen Negative Ur Leukocyte Esterase 3+ H Urine RBC 1 Urine WBC 18 Ur Epithelial Cells Few Urine Bacteria Rare Urine Mucus Rare Urine HCG, Qual Cancelled 03/20/16 20:40 INR 1.20 H Sodium Potassium Chloride Carbon Dioxide Anion Gap BUN Creatinine Creat Clearance w eGFR Random Glucose Calcium Total Bilirubin AST ALT Alkaline Phosphatase Total Protein Albumin Lipase Serum , Qual Urine Color Urine Appearance Urine pH Ur Specific [place] Urine Protein Urine Glucose (UA) Urine Ketones Urine Blood Urine Nitrite Urine Bilirubin Urine Urobilinogen Ur Leukocyte Esterase Urine RBC Urine WBC Ur Epithelial Cells Urine Bacteria Urine Mucus Urine HCG, Qual 03/20/16 20:40 RBC 5.40 H D MCV 70.8 L MCHC 31.3 L RDW 16.9 H MPV 9.1 Neutrophils % 84.3 H Lymphocytes % 8.5 Monocytes % 3.7 L Eosinophils % 3.0 D Basophils % 0.5 - Medications Given in the ED: ED Medications Discontinued Medications Generic Name Dose Route Start Last Admin Trade Name Payal PRN Reason Stop Dose Admin Sodium Chloride 500 mls @ 500 mls/hr 03/20/16 20:41 03/20/16 20:59 Normal Saline - IV 03/20/16 21:40 500 mls/hr ASDIR STA Administration Famotidine/Sodium Chloride 50 mls @ 100 mls/hr 03/20/16 21:34 03/20/16 21:56 Pepcid 20 Mg Premixed Ivpb - IVPB 03/20/16 22:03 100 mls/hr ONCE ONE Administration Morphine Sulfate 4 mg 03/20/16 20:42 03/20/16 20:59 Morphine Injection - IVPUSH 03/20/16 20:43 4 mg ONCE ONE Administration <Sona Blake - Last Filed: 03/21/16 01:31> Medical Decision Making - Medical Decision Making 03/21/16 01:24 Patient is a well-appearing 31-year-old female who presented with atraumatic upper abdominal pain and several episodes of nonbloody, non-ileus vomiting 5 days after undergoing a laparoscopic appendectomy. In the ER, patient received IV morphine, Pepcid and Zofran with IV fluids. CBC reveals no evidence of leukocytosis. Abdominal series x-ray reveals no evidence of dilated loops of small bowel nor air-fluid levels. After a period of observation, patient reports being pain free, tolerates by mouth and wishes to be discharged. Will discharge home with surgical follow-up as needed. <Azael Jerry - Last Filed: 03/21/16 01:23> *DC/Admit/Observation/Transfer - Attestations Physician Attestion: 03/21/16 01:23 The documentation was prepared by the scribe under my direct supervision. I have reviewed the documentation which correctly represents the findings, medical decision-making and critical action taken by me. <Azael Jerry - Last Filed: 03/21/16 01:23> - Attestations Scribe Attestion: 03/21/16 01:29 Documentation prepared by Sona Blake, acting as medical lead for Azael Jerry MD. <Sona Blake - Last Filed: 03/21/16 01:31> Diagnosis at time of Disposition: Abdominal pain Qualifiers: Abdominal location: upper abdomen, unspecified Qualified Code(s): R10.10 - Upper abdominal pain, unspecified Nausea & vomiting Qualifiers: Vomiting type: unspecified Vomiting Intractability: non-intractable Qualified Code(s): R11.2 - Nausea with vomiting, unspecified - Discharge Dispostion Disposition: HOME Condition at time of disposition: Stable - Referrals Referrals: Jhonatan Braxton MD [Staff Physician] - - Patient Instructions Printed Discharge Instructions: DI for Abdominal Pain-Adult
== END 2016-03-21 04:59 | disposition home or self-care (01) ==
LOC: JER 19:30
PROC: 3E033GC Introduction of Other Therapeutic Substance into Peripheral Vein, Percutaneous Approach (ICD-10-PCS; principal; 2016-03-20)
PROC: 3E033NZ Introduction of Analgesics, Hypnotics, Sedatives into Peripheral Vein, Percutaneous Approach (ICD-10-PCS; 2016-03-20)
DX: R10.84 Generalized abdominal pain (principal); R11.2 Nausea with vomiting, unspecified; Z98.890 Other specified postprocedural states; Z90.5 Acquired absence of kidney; D64.9 Anemia, unspecified; N80.9 Endometriosis, unspecified
CPT/HCPCS: 36415; 74020-TC; 80053; 81003; 81015; 83690; 84703; 85025; 85610; 87086; 99283-25